=== PATIENT | female | born 1975 | race African-American/Black ===

== ENCOUNTER 2022-08-02 13:17 | Inpatient (IN) | payer BC ==
[~2022-08-02] VITALS: Ht 167.6 cm; Wt 100.2 kg
[2022-08-02 14:35] LABS: BASOPHILS # (AUTO) 0.1 K/uL (0.0-0.2); BASOPHILS % (AUTO) 0.7 % (0.0-2.0); EOSINOPHILS % (AUTO) 1.2 % (0.0-6.0); HEMATOCRIT 34 % (33-45); HEMOGLOBIN 10.9 g/dL (11.5-14.8); LYMPHOCYTES # (AUTO) 1.6 K/uL (0.8-4.8); LYMPHOCYTES % (AUTO) 14.5 % (20.0-44.0); MEAN CORPUSCULAR HGB CONC 32 g/dl (31.0-36.0); MEAN CORPUSCULAR VOLUME 91 fL (82-100); MONOCYTES # (AUTO) 0.7 K/uL (0.1-1.30); MONOCYTES % (AUTO) 5.8 % (2.0-12.0); NEUTROPHILS # (AUTO) 8.8 K/uL (1.8-8.9); NEUTROPHILS % (AUTO) 77.8 % (43.0-81.0); PLATELET COUNT (AUTO) 384 K/uL (150-450); RED BLOOD CELL COUNT(AUTO) 3.77 MIL/uL (4.0-5.2); WHITE BLOOD COUNT (AUTO) 11.3 K/uL (4.3-11.0)
[2022-08-02 15:41] LABS: ALANINE AMINOTRANSFERASE 87 U/L (12-78); ALKALINE PHOSPHATASE 95 U/L (46-116); ASPARTATE AMINOTRANSFERASE 74 U/L (15-37); BILIRUBIN,DIRECT 0.3 mg/dL (0.0-0.2); BILIRUBIN,TOTAL 0.5 mg/dL (0.2-1.0); CALCIUM, SERUM 9.6 mg/dL (8.5-10.1); CARBON DIOXIDE 23 mmol/L (21-32); CHLORIDE 100 mmol/L (98-107); CREATININE 1.1 mg/dL (0.6-1.3); GLUCOSE 199 mg/dL (74-106); POTASSIUM 4.1 mmol/L (3.5-5.1); SODIUM SERUM 134 mmol/L (136-145); TOTAL PROTEIN, SERUM 9.1 g/dL (6.4-8.2); UREA NITROGEN, BLOOD 17 mg/dL (7-18)
[2022-08-02] MEDS ORDERED: FUROSEMIDE 40 MG/4 ML VIAL IV ONE (16:00)
[2022-08-02] MEDS ORDERED: FUROSEMIDE 40 MG/4 ML VIAL ONE (16:01)
[2022-08-02] MEDS ORDERED: METF-440 PO (16:20)
[2022-08-02] MEDS ORDERED: OLME1TAB42 PO (16:20)
[2022-08-02] MEDS ORDERED: ASPIRIN 325 MG TABLET PO ONE (16:30)
[2022-08-02] MEDS ORDERED: ASPIRIN 325 MG TABLET ONE (16:31)
[2022-08-02] MEDS ORDERED: DEXTROSE 50%-WATER 50 ML DISP.SYRIN IV PRN ×2 (17:30→19:30)
[2022-08-02] MEDS ORDERED: Z GUARD REMEDY 4 OZ OINT TP PRN ×2 (17:30→19:30)
[2022-08-02] MEDS ORDERED: BLOOD SUGAR DIAGNOSTIC 1 EACH STRIP VI SCH (17:30)
[2022-08-02] MEDS ORDERED: ACETAMINOPHEN 325 MG TABLET PO PRN ×2 (17:30→19:30)
[2022-08-02] MEDS ORDERED: MAG HYDROX/AL HYDROX/SIMETH 30 ML UDC PO PRN ×2 (17:30→19:30)
[2022-08-02] MEDS ORDERED: CEFTRIAXONE 1 G in IV D5W 50 ML IV SCH (17:30)
[2022-08-02] MEDS ORDERED: INSULIN REGULAR, HUMAN 100 UNIT/ML 3 ML VIAL SQ PRN (17:30)
[2022-08-02] MEDS ORDERED: *INSULIN REGULAR(HUMULIN R)HUM 100 UNIT/ML VIAL SQ PRN (17:30)
[2022-08-02] MEDS ORDERED: ONDANSETRON HCL/PF 4 MG/2 ML VIAL IVP PRN ×2 (17:30→19:30)
[2022-08-02] MEDS ORDERED: MAGNESIUM HYDROXIDE 30 ML UDC PO PRN ×2 (17:30→19:30)
[2022-08-02 20:00] VITALS: BP 142/88
[2022-08-02] MEDS: CEFTRIAXONE 1 G in IV D5W 50 ML IV SCH (20:39)
[2022-08-02] MEDS: BLOOD SUGAR DIAGNOSTIC 1 EACH STRIP VI SCH (22:17)
[2022-08-02] MEDS: *INSULIN REGULAR(HUMULIN R)HUM 100 UNIT/ML VIAL SQ PRN (22:18)
[2022-08-03] VITALS: BP 160/93
[2022-08-03 04:00] VITALS: BP 141/78
[2022-08-03 06:09] LABS: BASOPHILS # (AUTO) 0.1 K/uL (0.0-0.2); BASOPHILS % (AUTO) 0.6 % (0.0-2.0); EOSINOPHILS % (AUTO) 2.1 % (0.0-6.0); HEMATOCRIT 32 % (33-45); HEMOGLOBIN 10.4 g/dL (11.5-14.8); LYMPHOCYTES # (AUTO) 1.5 K/uL (0.8-4.8); LYMPHOCYTES % (AUTO) 14.9 % (20.0-44.0); MEAN CORPUSCULAR HGB CONC 32 g/dl (31.0-36.0); MEAN CORPUSCULAR VOLUME 91 fL (82-100); MONOCYTES # (AUTO) 0.8 K/uL (0.1-1.30); MONOCYTES % (AUTO) 8.1 % (2.0-12.0); NEUTROPHILS # (AUTO) 7.3 K/uL (1.8-8.9); NEUTROPHILS % (AUTO) 74.3 % (43.0-81.0); PLATELET COUNT (AUTO) 343 K/uL (150-450); RED BLOOD CELL COUNT(AUTO) 3.55 MIL/uL (4.0-5.2); WHITE BLOOD COUNT (AUTO) 9.9 K/uL (4.3-11.0)
[2022-08-03 06:22] LABS: CALCIUM, SERUM 9.5 mg/dL (8.5-10.1); CREATININE 1.1 mg/dL (0.6-1.3); MAGNESIUM 2.1 mg/dL (1.8-2.4); PHOSPHORUS 6.3 mg/dL (2.5-4.9); POTASSIUM 4.2 mmol/L (3.5-5.1)
[2022-08-03] MEDS: BLOOD SUGAR DIAGNOSTIC 1 EACH STRIP VI SCH ×4 (07:25→22:00)
[2022-08-03] MEDS: *INSULIN REGULAR(HUMULIN R)HUM 100 UNIT/ML VIAL SQ PRN ×3 (07:30→17:09)
[2022-08-03 08:00] VITALS: BP 141/87
[2022-08-03 12:00] VITALS: BP 132/88
[2022-08-03 16:04] VITALS: BP 139/91
[2022-08-03 20:00] VITALS: BP 150/94
[2022-08-03] MEDS: CEFTRIAXONE 1 G in IV D5W 50 ML IV SCH (20:53)
[2022-08-03] MEDS ORDERED: hydrALAZINE HCL IV 20 MG VIAL IV PRN (21:30)
[2022-08-04] MEDS: *INSULIN REGULAR(HUMULIN R)HUM 100 UNIT/ML VIAL SQ PRN ×2 (01:27→21:52)
[2022-08-04 04:00] VITALS: BP 131/81
[2022-08-04 06:41] LABS: BASOPHILS # (AUTO) 0.1 K/uL (0.0-0.2); BASOPHILS % (AUTO) 0.8 % (0.0-2.0); EOSINOPHILS % (AUTO) 2.6 % (0.0-6.0); HEMATOCRIT 32 % (33-45); HEMOGLOBIN 10.2 g/dL (11.5-14.8); LYMPHOCYTES # (AUTO) 1.7 K/uL (0.8-4.8); LYMPHOCYTES % (AUTO) 20.3 % (20.0-44.0); MEAN CORPUSCULAR HGB CONC 32 g/dl (31.0-36.0); MEAN CORPUSCULAR VOLUME 92 fL (82-100); MONOCYTES # (AUTO) 0.7 K/uL (0.1-1.30); MONOCYTES % (AUTO) 8.2 % (2.0-12.0); NEUTROPHILS # (AUTO) 5.6 K/uL (1.8-8.9); NEUTROPHILS % (AUTO) 68.1 % (43.0-81.0); PLATELET COUNT (AUTO) 346 K/uL (150-450); RED BLOOD CELL COUNT(AUTO) 3.49 MIL/uL (4.0-5.2); WHITE BLOOD COUNT (AUTO) 8.2 K/uL (4.3-11.0)
[2022-08-04 06:49] LABS: CALCIUM, SERUM 9.2 mg/dL (8.5-10.1); CREATININE 1.1 mg/dL (0.6-1.3); POTASSIUM 3.9 mmol/L (3.5-5.1)
[2022-08-04] MEDS: BLOOD SUGAR DIAGNOSTIC 1 EACH STRIP VI SCH ×4 (07:52→21:47)
[2022-08-04] MEDS: INSULIN REGULAR, HUMAN 100 UNIT/ML 3 ML VIAL SQ PRN ×2 (07:58→12:04)
[2022-08-04 08:00] VITALS: BP 135/83
[2022-08-04 16:00] VITALS: BP 133/89
[2022-08-04] MEDS: CEFTRIAXONE 1 G in IV D5W 50 ML IV SCH (19:49)
[2022-08-04 20:00] VITALS: BP 140/100
[2022-08-05 00:40] VITALS: BP 140/100
[2022-08-05 04:00] VITALS: BP 146/85
[2022-08-05 07:20] LABS: BASOPHILS # (AUTO) 0.1 K/uL (0.0-0.2); EOSINOPHILS % (AUTO) 3.2 % (0.0-6.0); HEMATOCRIT 31 % (33-45); HEMOGLOBIN 9.9 g/dL (11.5-14.8); LYMPHOCYTES # (AUTO) 1.7 K/uL (0.8-4.8); LYMPHOCYTES % (AUTO) 23.2 % (20.0-44.0); MEAN CORPUSCULAR HGB CONC 32 g/dl (31.0-36.0); MEAN CORPUSCULAR VOLUME 92 fL (82-100); MONOCYTES # (AUTO) 0.7 K/uL (0.1-1.30); MONOCYTES % (AUTO) 9.1 % (2.0-12.0); NEUTROPHILS # (AUTO) 4.6 K/uL (1.8-8.9); NEUTROPHILS % (AUTO) 63.5 % (43.0-81.0); PLATELET COUNT (AUTO) 337 K/uL (150-450); RED BLOOD CELL COUNT(AUTO) 3.35 MIL/uL (4.0-5.2); WHITE BLOOD COUNT (AUTO) 7.2 K/uL (4.3-11.0)
[2022-08-05 08:00] VITALS: BP 140/82
[2022-08-05] MEDS: BLOOD SUGAR DIAGNOSTIC 1 EACH STRIP VI SCH ×4 (08:00→22:27)
[2022-08-05] MEDS: INSULIN REGULAR, HUMAN 100 UNIT/ML 3 ML VIAL SQ PRN ×3 (09:01→17:54)
[2022-08-05 16:00] VITALS: BP 140/87
[2022-08-05 20:00] VITALS: BP 147/89
[2022-08-05] MEDS: CEFTRIAXONE 1 G in IV D5W 50 ML IV SCH (20:16)
[2022-08-05] MEDS: *INSULIN REGULAR(HUMULIN R)HUM 100 UNIT/ML VIAL SQ PRN (22:28)
[2022-08-06] VITALS: BP 137/75
[2022-08-06 04:00] VITALS: BP 119/77
[2022-08-06 08:00] VITALS: BP_SYST 125; BP_SYST 150; BP_DIAS 81; BP_DIAS 88
[2022-08-06] MEDS: BLOOD SUGAR DIAGNOSTIC 1 EACH STRIP VI SCH ×4 (08:01→22:18)
[2022-08-06] MEDS: INSULIN REGULAR, HUMAN 100 UNIT/ML 3 ML VIAL SQ PRN ×3 (08:03→16:43)
[2022-08-06] MEDS ORDERED: IV NS 0.9% 250 ML IV ONE (09:20)
[2022-08-06] MEDS ORDERED: IOHEXOL-300 100 ML VIAL IV ONE (09:20)
[2022-08-06] MEDS ORDERED: CT SWABBABLE VALVE TRANS SET 1 EA INFUS.SET MC ONE (09:21)
[2022-08-06] MEDS: LEVOFLOXACIN 750 MG /D5W 150ML 150 ML IV SCH (12:08)
[2022-08-06 16:00] VITALS: BP 141/81
[2022-08-06] MEDS: CEFTRIAXONE 1 G in IV D5W 50 ML IV SCH (19:55)
[2022-08-06 20:00] VITALS: BP 144/81
[2022-08-06] MEDS: *INSULIN REGULAR(HUMULIN R)HUM 100 UNIT/ML VIAL SQ PRN (22:30)
[2022-08-07 05:00] VITALS: BP 134/82
[2022-08-07 08:00] VITALS: BP 137/87
[2022-08-07] MEDS: BLOOD SUGAR DIAGNOSTIC 1 EACH STRIP VI SCH ×4 (08:19→21:39)
[2022-08-07] MEDS: INSULIN REGULAR, HUMAN 100 UNIT/ML 3 ML VIAL SQ PRN ×2 (08:34→11:59)
[2022-08-07] MEDS: LEVOFLOXACIN 750 MG /D5W 150ML 150 ML IV SCH (11:08)
[2022-08-07 16:00] VITALS: BP 137/87
[2022-08-07] MEDS: CEFTRIAXONE 1 G in IV D5W 50 ML IV SCH (19:41)
[2022-08-07] MEDS: *INSULIN REGULAR(HUMULIN R)HUM 100 UNIT/ML VIAL SQ PRN (21:43)
[2022-08-08] VITALS: BP 143/36
[2022-08-08] MEDS: BLOOD SUGAR DIAGNOSTIC 1 EACH STRIP VI SCH ×2 (07:45→12:00)
[2022-08-08 08:00] VITALS: BP 126/82
[2022-08-08 09:07] LABS: *ANA ANTI-CENTROMERE B AB <0.2 AI (0.0-0.9); *ANA ANTI-DNA(DS) AB, QN <1 IU/mL (0-9); *ANA ANTI-JO-1 <0.2 AI (0.0-0.9); *ANA ANTICHROMATIN ANTIBODY <0.2 AI (0.0-0.9); *ANA RNP ANTIBODIES <0.2 AI (0.0-0.9); *ANA SJOGREN'S ANTI-SS-A <0.2 AI (0.0-0.9); *ANA SJOGREN'S ANTI-SS-B <0.2 AI (0.0-0.9); *ANAANTI-SCLERODERMA-70 AB <0.2 AI (0.0-0.9); *ANASMITH AB <0.2 AI (0.0-0.9)
[2022-08-08] MEDS: LEVOFLOXACIN 750 MG /D5W 150ML 150 ML IV SCH (11:23)
[2022-08-08] MEDS ORDERED: LEVO750T46 PO (11:59)
[2022-08-08] MEDS: INSULIN REGULAR, HUMAN 100 UNIT/ML 3 ML VIAL SQ PRN (12:02)
[2022-08-08 20:06] LABS: *MYCOPLASMA PNEUMONIAE IgG 163 U/mL (0-99); *MYCOPLASMA PNEUMONIAE IgM <770 U/mL (0-769)
[2022-08-09] MEDS ORDERED: LEVOFLOXACIN (250MG) 250 MG TABLET PO SCH (09:00)
== END 2022-08-08 14:20 | disposition home or self-care (01) | DRG 177 ==
LOC: ER 13:31 → MEDSG1 20:03 → TELE1 20:05 → MEDSG1 08-03 14:56
PROVIDERS: ADMIT Internal Medicine; ATTEND Internal Medicine
PROC: 0W993ZX Drainage of Right Pleural Cavity, Percutaneous Approach, Diagnostic (ICD-10-PCS; principal; 2022-08-05)
DX: J15.6 Pneumonia due to other Gram-negative bacteria (principal); J96.01 Acute respiratory failure with hypoxia; J91.8 Pleural effusion in other conditions classified elsewhere; J98.11 Atelectasis; Z20.822 Contact with and (suspected) exposure to COVID-19; E11.9 Type 2 diabetes mellitus without complications; I10 Essential (primary) hypertension; Z87.891 Personal history of nicotine dependence; R63.4 Abnormal weight loss; E66.9 Obesity, unspecified; Z68.35 Body mass index [BMI] 35.0-35.9, adult
CPT/HCPCS: 36415; 71045-TC; 71270-TC; 80048-TC; 80076-TC; 82962-TC; 83735-TC; 83880; 84100-TC; 84484-TC; 84702-TC; 85025-TC; 85610-TC; 86225; 86235; 86713; 86738; 87081-TC; 87102-TC; 87116; 87206; 87449; 88108-TC; 88305-TC; 88312-TC; 88341; 88342; 89051-TC; 93307-TC; A4223; C9803; G0378; J0696; J1815; J1940; J1956; J7050; J7060; Q9967

== ENCOUNTER 2023-05-01 03:10 | Emergency (ER) | payer BC ==
[~2023-05-01] VITALS: Ht 167.6 cm; Wt 102.1 kg
[~2023-05-01 03:10] MED LIST: LEVO750T46 PO; METF-440 PO; OLME1TAB42 PO
[2023-05-01] MEDS ORDERED: IV NS 0.9% 1,000 ML BAG IV ONE ×2 (03:30→05:30)
[2023-05-01] MEDS ORDERED: ONDANSETRON HCL/PF 4 MG/2 ML VIAL IVP ONE (03:30)
[2023-05-01] MEDS ORDERED: ONDANSETRON HCL/PF 4 MG/2 ML VIAL ONE ×2 (03:36→05:23)
[2023-05-01 04:02] LABS: BASOPHILS # (AUTO) 0.3 K/uL (0.0-0.2); BASOPHILS % (AUTO) 3.2 % (0.0-2.0); EOSINOPHILS % (AUTO) 0.5 % (0.0-6.0); HEMATOCRIT 33 % (33-45); HEMOGLOBIN 10.9 g/dL (11.5-14.8); LYMPHOCYTES # (AUTO) 1.4 K/uL (0.8-4.8); LYMPHOCYTES % (AUTO) 14.2 % (20.0-44.0); MEAN CORPUSCULAR HEMOGLOBIN 30 PG (26.0-33.0); MEAN CORPUSCULAR HGB CONC 33 g/dl (31.0-36.0); MEAN CORPUSCULAR VOLUME 92 fL (82-100); MONOCYTES # (AUTO) 0.3 K/uL (0.1-1.30); MONOCYTES % (AUTO) 3.1 % (2.0-12.0); NEUTROPHILS # (AUTO) 7.7 K/uL (1.8-8.9); PLATELET COUNT (AUTO) 232 K/uL (150-450); RED BLOOD CELL COUNT(AUTO) 3.63 MIL/uL (4.0-5.2); RED CELL DISTRIBUTION WIDTH 16.8 % (11.5-15.0); WHITE BLOOD COUNT (AUTO) 9.8 K/uL (4.3-11.0)
[2023-05-01 04:19] LABS: ALBUMIN 3.4 g/dL (3.4-5.0); BILIRUBIN,DIRECT 0.4 mg/dL (0.0-0.2); BILIRUBIN,TOTAL 1.4 mg/dL (0.2-1.0); CALCIUM, SERUM 9.4 mg/dL (8.5-10.1); CREATININE 1.3 mg/dL (0.6-1.3); POTASSIUM 3.8 mmol/L (3.5-5.1); TOTAL PROTEIN, SERUM 8.5 g/dL (6.4-8.2)
[2023-05-01] MEDS ORDERED: METOCLOPRAMIDE HCL 10 MG/2 ML VIAL ONE (05:23)
[2023-05-01] MEDS ORDERED: diphenhydrAMINE HCL 50 MG/ML VIAL ONE (05:26)
[2023-05-01] MEDS ORDERED: METOCLOPRAMIDE HCL 10 MG/2 ML VIAL IV ONE (05:30)
[2023-05-01] MEDS ORDERED: diphenhydrAMINE HCL 50 MG/ML VIAL IV ONE (05:30)
[2023-05-01] MEDS ORDERED: ONDANSETRON HCL/PF - ER 4 MG/2 ML VIAL IV ONE (05:30)
[2023-05-01] MEDS ORDERED: METO-295 PO (05:49)
[2023-05-01] MEDS ORDERED: ONDA4TAB11 PO (05:49)
[2023-05-01 05:54] LABS: APPEARANCE,URINE SLIGHTLY CLOUDY (CLEAR); BILIRUBIN,URINE NEGATIVE (NEGATIVE); BLOOD, URINE NEGATIVE Ery/uL (NEGATIVE); COLOR,URINE YELLOW (YELLOW); KETONES,URINE TRACE mg/dL (NEGATIVE); LEUKOCYTE ESTERASE ,URINE 1+ (NEGATIVE); NITRITE, URINE NEGATIVE (NEGATIVE); PH,URINE 7.5 (5.0-8.0); PROTEIN,URINE NEGATIVE (NEGATIVE); UGLUCOSE 1+ mg/dL (NEGATIVE)
[2023-05-01 06:00] LABS: PREGNANCY TEST URINE QUAL NEGATIVE (NEGATIVE)
[2023-05-01 06:11] LABS: ADD URINE CULTURE YES; BACTERIA,URINE 4+ /HPF (None Seen); RBC,URINE NONE SEEN /HPF (0-2)
[2023-05-01] MEDS ORDERED: ONDANSETRON 4 MG TAB.RAPDIS SL ONE (08:30)
[2023-05-01] MEDS ORDERED: ONDANSETRON 4 MG TAB.RAPDIS ONE (08:32)
[2023-05-01 08:36] VITALS: BP 124/74; TEMP 98; O2SAT 98
== END 2023-05-01 08:42 | disposition home or self-care (01) ==
LOC: ER 03:17
DX: R11.2 Nausea with vomiting, unspecified (principal); I10 Essential (primary) hypertension; E11.9 Type 2 diabetes mellitus without complications; R10.2 Pelvic and perineal pain; F17.200 Nicotine dependence, unspecified, uncomplicated; Z79.899 Other long term (current) drug therapy; Z60.2 Problems related to living alone
CPT/HCPCS: 99284; 96374; 96361; 96375; 96376; 85025; 80048; 87086; 83690; 80076; 84703; 81001; 36415; J1200; J2765; J2405 ×3; J7030 ×2; Q0162; A4223